=== PATIENT | female | born 1940 | race Caucasian/White ===

== ENCOUNTER 2017-03-28 12:13 | Observation (INO) ==
[2017-03-28] MEDS ORDERED: MAGNESIUM SULF RIDER 4 GM in PREMIX 1 EACH IV PRN (12:46)
[2017-03-28] MEDS ORDERED: ACETAMINOPHEN 325 MG TABLET PO PRN (12:46)
[2017-03-28] MEDS ORDERED: ZALEPLON 5 MG CAPSULE PO PRN (12:46)
[2017-03-28] MEDS ORDERED: DOCUSATE SODIUM 100 MG CAPSULE PO PRN (12:46)
[2017-03-28] MEDS ORDERED: MAGNESIUM SULF RIDER 2 GM in PREMIX 1 EACH IV PRN (12:46)
[2017-03-28] MEDS ORDERED: ONDANSETRON 4 MG/2 ML VIAL IV PRN (12:46)
[2017-03-28 14:10] LABS: Basophils % 0.4 % (0.0-0.8); Eosinophils # 0.3 10*3/uL (0.0-0.87); Eosinophils % 5.9 % (0.00-10.9); Hematocrit 37.7 VOL% (35.7-47.0); Immature Granulocytes % 0.2 %; Immature Granulocytes Absolute 0.01 #; Lymphocytes # 1.9 10*3/uL (1.4-4.0); Mean Corpuscular HGB Conc 34.5 GM/DL (32-36); Mean Corpuscular Hemoglobin 34 PG (27-34); Mean Corpuscular Volume 99.7 FL (87-102); Mean Platelet Volume 9.7 FL (9.6-12.0); Monocytes # 0.6 10*3/uL (0.11-0.8); Monocytes % 11.2 % (1.7-12.7); Neutrophils # 2.7 10*3/uL (1.4-7.4); Neutrophils % 48.3 % (38.7-73.9); Platelet Count 154 T/CUMM (130-400); Red Blood Count 3.78 MC/CUMM (3.8-5.5); Red Cell Distribution Width 13.4 % (9.3-17.3); White Blood Count 5.6 T/CUMM (4-12)
[2017-03-28 14:16] LABS: INR 1.1; PT Patient Result 11.7 SECS
[2017-03-28 14:51] LABS: Albumin 3.3 G/DL (3.4-5.0); Bilirubin,Total 0.6 MG/DL (0.2-1.0); Calcium 8.7 MG/DL (8.5-10.1); Osmolality,Calculated 284.1 MOS/KG (273-304); Potassium 4.1 MMOL/L (3.5-5.1); Thyroid Stimulating Hormone 1.37 uIU/ml (0.358-3.74); Total Protein 6.1 G/DL (6.4-8.3)
[2017-03-28] MEDS ORDERED: diphenhydrAMINE CAP 25 MG CAPSULE PO PRN (15:02)
[2017-03-28] MEDS ORDERED: guaiFENesin/DM ER 600-30 MG TABLET PO PRN (15:02)
[2017-03-28] MEDS ORDERED: BISACODYL 5 MG TABLET PO PRN (15:02)
[2017-03-28] MEDS ORDERED: ENOXAPARIN 40 MG/0.4 ML SYRINGE SUBCUT SCH (15:30)
[2017-03-28 16:24] LABS: INR 1.1; PT Patient Result 11.6 SECS; Partial Thromboplastin Time 26.1 SECS (0-40)
[2017-03-28 16:30] LABS: Calcium 9.2 MG/DL (8.5-10.1); Magnesium 2.1 MG/DL (1.8-2.4); Osmolality,Calculated 282.3 MOS/KG (273-304); Potassium 3.6 MMOL/L (3.5-5.1)
[2017-03-28] MEDS: ALBUTEROL/IPRATROPIUM 3 ML NEB RESP TX SCH ×2 (18:47→23:49)
[2017-03-28] MEDS: HYOSCYAMINE 0.125 MG TABLET PO SCH (20:43)
[2017-03-28] MEDS ORDERED: LORATADINE 10 MG TABLET PO SCH (21:00)
[2017-03-28] MEDS ORDERED: ROSUVASTATIN 20 MG TABLET PO SCH (21:00)
[2017-03-29 05:29] LABS: Basophils % 0.2 % (0.0-0.8); Eosinophils # 0.4 10*3/uL (0.0-0.87); Eosinophils % 7.7 % (0.00-10.9); Hematocrit 36.5 VOL% (35.7-47.0); Hemoglobin 12.5 GM/DL (12.0-16.0); Immature Granulocytes % 0.2 %; Immature Granulocytes Absolute 0.01 #; Lymphocytes # 2.1 10*3/uL (1.4-4.0); Lymphocytes % 44.3 % (21.3-54.2); Mean Corpuscular HGB Conc 34.2 GM/DL (32-36); Mean Corpuscular Hemoglobin 34 PG (27-34); Mean Corpuscular Volume 99.5 FL (87-102); Mean Platelet Volume 10.4 FL (9.6-12.0); Monocytes # 0.5 10*3/uL (0.11-0.8); Monocytes % 11.2 % (1.7-12.7); Neutrophils # 1.8 10*3/uL (1.4-7.4); Neutrophils % 36.4 % (38.7-73.9); Platelet Count 158 T/CUMM (130-400); Red Blood Count 3.67 MC/CUMM (3.8-5.5); Red Cell Distribution Width 13.3 % (9.3-17.3); White Blood Count 4.8 T/CUMM (4-12)
[2017-03-29] MEDS ORDERED: VANCOMYCIN 500 MG VIAL IRRIG ONE ×2 (06:00→07:30)
[2017-03-29] MEDS ORDERED: diphenhydrAMINE CAP 25 MG CAPSULE PO ONE (06:00)
[2017-03-29] MEDS ORDERED: DIAZEPAM 5 MG TABLET PO ONE ×2 (06:00→07:30)
[2017-03-29] MEDS ORDERED: VANCOMYCIN INJ 500 MG in SODIUM CHLORIDE 0.9% 100 ML IV ONE ×2 (06:00→07:30)
[2017-03-29 06:14] LABS: Calcium 8.4 MG/DL (8.5-10.1); Magnesium 2.1 MG/DL (1.8-2.4); Osmolality,Calculated 287.8 MOS/KG (273-304); Potassium 3.7 MMOL/L (3.5-5.1)
[2017-03-29 06:15] LABS: Band Neutrophils 1 % (0-10); Eosinophils 8 % (0-10); Lymphocytes 42 % (20-55); Segmented Neutrophils 35 % (50-85); Total Cells Counted 100
[2017-03-29 06:16] LABS: Platelet Estimate Adequate
[2017-03-29 06:17] LABS: Atypical Lymphocytes Few
[2017-03-29 06:22] LABS: Risk Ratio 2.35; VLDL CHOLESTEROL 15.4 MG/DL
[2017-03-29] MEDS: ALBUTEROL/IPRATROPIUM 3 ML NEB RESP TX SCH ×2 (07:00→12:03)
[2017-03-29] MEDS ORDERED: diphenhydrAMINE CAP 25 MG CAPSULE PO PRN (07:30)
[2017-03-29] MEDS ORDERED: VANCOMYCIN INJ 1,000 MG in SODIUM CHLORIDE 0.9% 250 ML IV ONE (07:30)
[2017-03-29] MEDS ORDERED: LIDOCAINE 1% 20 ML VIAL ONE (07:58)
[2017-03-29] MEDS ORDERED: MIDAZOLAM 2 MG/2 ML VIAL ONE ×2 (07:58→08:22)
[2017-03-29] MEDS ORDERED: TISSUE ADHESIVE 1 EACH APPLICATOR TOP ONE (07:58)
[2017-03-29] MEDS ORDERED: fentaNYL 100 MCG/2 ML VIAL ONE ×2 (07:58→08:22)
[2017-03-29] MEDS ORDERED: VANCOMYCIN 500 MG VIAL ONE (07:58)
[2017-03-29] MEDS ORDERED: HEPARIN/NACL 0.9% 2 UNITS/ML 500 ML IV ONE (08:09)
[2017-03-29] MEDS ORDERED: ISOSORBIDE MONONITRATE 60 MG TABLET PO SCH (09:00)
[2017-03-29] MEDS ORDERED: DONEPEZIL 10 MG TABLET PO SCH (09:00)
[2017-03-29] MEDS ORDERED: hydroCHLOROthiazide 25 MG TABLET PO SCH (09:00)
[2017-03-29] MEDS ORDERED: ASPIRIN EC 325 MG TABLET PO SCH (09:00)
[2017-03-29] MEDS ORDERED: SPIRONOLACTONE 25 MG TABLET PO SCH (09:00)
[2017-03-29] MEDS ORDERED: LOSARTAN 50 MG TABLET PO SCH (09:00)
[2017-03-29] MEDS ORDERED: PANTOPRAZOLE 40 MG TABLET PO SCH (09:00)
[2017-03-29] MEDS: HYOSCYAMINE 0.125 MG TABLET PO SCH (09:36)
[2017-03-29 15:11] VITALS: BP 162/71
== END 2017-03-29 14:30 | disposition home or self-care (01) ==
LOC: N.TELES
PROVIDERS: ADMIT Internal Medicine Cardiovascular Disease; ATTEND Internal Medicine Cardiovascular Disease

== ENCOUNTER 2018-10-03 18:23 | Inpatient (IN) ==
[2018-10-03] MEDS ORDERED: FUROSEMIDE 100 MG/10 ML VIAL IV STA (18:52)
[2018-10-03] MEDS ORDERED: SODIUM CHLORIDE 0.9% 1,000 ML IV STA (18:52)
[2018-10-03] MEDS ORDERED: INSULIN REGULAR 100 UNIT/ML IV STA (18:52)
[2018-10-03] MEDS ORDERED: ONDANSETRON 4 MG/2 ML VIAL IV STA (18:52)
[2018-10-03] MEDS ORDERED: ALBUTEROL NEB SOLN 5 MG/ML 20 ML/BOTTLE RESP TX SCH (19:00)
[2018-10-03] MEDS ORDERED: FUROSEMIDE 40 MG/4 ML VIAL ONE (19:16)
[2018-10-03 19:28] LABS: ABG Base Excess 1.6 MMOL/L (-2.5-2.5); ABG HCO3 25.8 MMOL/L (20-26); ABG Oxygen Saturation 99.5 % (95-100); ABG TCO2 16.8 MMOL/L (23-27); Allen Test Positive
[2018-10-03 19:30] LABS: ABG PH 7.623 (7.35-7.45)
[2018-10-03 19:31] LABS: ABG PCO2 19.5 MM HG (35-48)
[2018-10-03 19:43] LABS: Basophils % 0.1 % (0.0-0.8); Eosinophils # 0.1 10*3/uL (0.0-0.87); Eosinophils % 1.7 % (0.00-10.9); Hematocrit 43.1 VOL% (35.7-47.0); Hemoglobin 15.4 GM/DL (12.0-16.0); Immature Granulocytes % 0.3 %; Immature Granulocytes Absolute 0.02 #; Lymphocytes % 29.1 % (21.3-54.2); Mean Corpuscular HGB Conc 35.7 GM/DL (32-36); Mean Corpuscular Volume 96.9 FL (87-102); Mean Platelet Volume 11.2 FL (9.6-12.0); Monocytes % 11.5 % (1.7-12.7); Neutrophils % 57.3 % (38.7-73.9); Platelet Count 194 T/CUMM (130-400); Red Blood Count 4.45 MC/CUMM (3.8-5.5); Red Cell Distribution Width 12.2 % (9.3-17.3)
[2018-10-03 19:51] LABS: INR 1.1; PT Patient Result 11.4 SECS
[2018-10-03 20:01] LABS: Apearance,Urine Slightly Hazy (Clear); Bacteria,Urine Occasional /HPF (Few); Bilirubin,Urine Negative (Negative); Blood, Urine Negative (Negative); Glucose,Urine (UA) >=500 mg/dL (Negative); Ketones,Urine 20 mg/dL (Negative); Nitrite,Urine Negative (Negative); Protein,Urine Negative; RBC,Urine 1 /HPF (0-4); Squamous Epithelial Cell,Urine Occasional /HPF (0-10); Urine Color Yellow (Yellow); Urine Specific Gravity 1.029 (1.001-1.035); Urine Urobilinogen < 2.0 EU/DL (0.2-1.0); WBC,Urine 1 /HPF (0-6)
[2018-10-03 20:04] LABS: Alanine Aminotransferase 41 U/L (13-56); Albumin 3.2 G/DL (3.4-5.0); Alkaline Phosphatase 115 U/L (45-117); Aspartate Amino Transferase 28 U/L (0-37); Blood Urea Nitrogen 25 MG/DL (7-18); Calcium 10.8 MG/DL (8.5-10.1); Osmolality,Calculated 289.7 MOS/KG (273-304); Total Protein 7.1 G/DL (6.4-8.3); Troponin I 0.027 NG/ML (0.00-0.045)
[2018-10-03 20:08] LABS: Glucose 534 MG/DL (74-106)
[2018-10-03] MEDS ORDERED: ALBUTEROL 2.5 MG/3 ML NEB RESP TX PRN (22:08)
[2018-10-03] MEDS ORDERED: ONDANSETRON 4 MG/2 ML VIAL IV PRN (22:08)
[2018-10-03] MEDS ORDERED: SODIUM CHLORIDE 0.9% IV PRN (22:08)
[2018-10-03] MEDS ORDERED: SODIUM PHOSPHATE IV PRN (22:08)
[2018-10-03] MEDS ORDERED: MAGNESIUM SULF RIDER 2 GM in PREMIX 1 EACH IV PRN (22:08)
[2018-10-03] MEDS ORDERED: ZALEPLON 5 MG CAPSULE PO PRN (22:08)
[2018-10-03] MEDS ORDERED: SODIUM BICARB INJ 100 MEQ in STERILE WATER INJ 400 ML IV PRN (22:08)
[2018-10-03] MEDS ORDERED: DEXTROSE 50% 25 GM/50 ML SYRINGE IV PRN ×2 (22:08)
[2018-10-03] MEDS ORDERED: MAGNESIUM SULF RIDER 4 GM in PREMIX 1 EACH IV PRN (22:08)
[2018-10-03] MEDS ORDERED: INSULIN REGULAR DRIP 100 ML IV SCH (23:00)
[2018-10-03] MEDS ORDERED: SODIUM CHLORIDE 0.9% 1,000 ML IV SCH (23:00)
[2018-10-04] MEDS: POTASSIUM CHLORIDE RIDER 10 MEQ in PREMIX 1 EACH IV PRN ×3 (00:30→03:46)
[2018-10-04] MEDS: ENOXAPARIN 30 MG/0.3 ML SYRINGE SUBCUT SCH ×2 (00:46→21:49)
[2018-10-04] MEDS ORDERED: ZOLPIDEM 5 MG TABLET PO PRN (01:14)
[2018-10-04] MEDS ORDERED: ALBUTEROL 2.5 MG/3 ML NEB RESP TX PRN (01:14)
[2018-10-04 02:24] LABS: Calcium 9.3 MG/DL (8.5-10.1); Osmolality,Calculated 293.8 MOS/KG (273-304)
[2018-10-04] MEDS: LORazepam 1 MG TABLET PO SCH ×3 (02:29→21:43)
[2018-10-04] MEDS: DONEPEZIL 10 MG TABLET PO SCH ×2 (02:29→21:44)
[2018-10-04] MEDS: FAMOTIDINE 20 MG TABLET PO SCH ×2 (02:29→21:44)
[2018-10-04] MEDS: MIRTAZAPINE 15 MG TABLET PO SCH ×2 (02:29→21:48)
[2018-10-04 03:16] LABS: Basophils % 0.3 % (0.0-0.8); Eosinophils # 0.1 10*3/uL (0.0-0.87); Eosinophils % 1.9 % (0.00-10.9); Hematocrit 40.1 VOL% (35.7-47.0); Hemoglobin 13.8 GM/DL (12.0-16.0); Immature Granulocytes % 0.3 %; Immature Granulocytes Absolute 0.02 #; Lymphocytes # 2.1 10*3/uL (1.4-4.0); Mean Corpuscular HGB Conc 34.4 GM/DL (32-36); Mean Corpuscular Volume 98.8 FL (87-102); Mean Platelet Volume 10.7 FL (9.6-12.0); Monocytes % 14.8 % (1.7-12.7); Neutrophils % 51.7 % (38.7-73.9); Platelet Count 160 T/CUMM (130-400); Red Blood Count 4.06 MC/CUMM (3.8-5.5); Red Cell Distribution Width 12.1 % (9.3-17.3); White Blood Count 6.8 T/CUMM (4-12)
[2018-10-04] MEDS: SODIUM CHLORIDE 0.45% 1,000 ML IV SCH ×2 (04:55→13:25)
[2018-10-04 06:35] LABS: Apearance,Urine CLEAR (Clear); Bacteria,Urine Occasional /HPF (Few); Bilirubin,Urine Negative (Negative); Blood, Urine Negative (Negative); Glucose,Urine (UA) >=500 mg/dL (Negative); Hyaline Casts,Urine 9 /LPF (0-3); Ketones,Urine 5 mg/dL (Negative); Mucus,Urine Occasional /LPF (Occasional); Nitrite,Urine Negative (Negative); Protein,Urine Negative; RBC,Urine <1 /HPF (0-4); Urine Color Yellow (Yellow); Urine Specific Gravity 1.018 (1.001-1.035); Urine Urobilinogen < 2.0 EU/DL (0.2-1.0); WBC,Urine <1 /HPF (0-6)
[2018-10-04 07:33] LABS: Calcium 8.9 MG/DL (8.5-10.1); Osmolality,Calculated 288.5 MOS/KG (273-304)
[2018-10-04] MEDS ORDERED: [UNRECOGNIZED DRUG - MIXTURE] PO SCH (09:00)
[2018-10-04] MEDS ORDERED: PANTOPRAZOLE 40 MG VIAL IV SCH (09:00)
[2018-10-04] MEDS ORDERED: PANTOPRAZOLE 40 MG TABLET PO SCH (09:00)
[2018-10-04] MEDS ORDERED: MELATONIN 3 MG TABLET PO SCH (09:00)
[2018-10-04] MEDS ORDERED: [UNRECOGNIZED DRUG - REMARK] PO SCH (09:00)
[2018-10-04] MEDS ORDERED: VITAMIN E 200 UNIT CAPSULE PO SCH (09:00)
[2018-10-04 10:22] LABS: Calcium 8.9 MG/DL (8.5-10.1); Osmolality,Calculated 281.3 MOS/KG (273-304)
[2018-10-04] MEDS ORDERED: GLUCAGON 1 MG VIAL IM PRN (12:05)
[2018-10-04] MEDS ORDERED: DEXTROSE 50% 25 GM/50 ML SYRINGE IV PRN (12:05)
[2018-10-04] MEDS: DICYCLOMINE 10 MG CAPSULE PO SCH ×3 (13:22→21:43)
[2018-10-04] MEDS: VENLAFAXINE 75 MG TABLET PO SCH (13:22)
[2018-10-04] MEDS: POTASSIUM CHLORIDE 20 MEQ TABLET PO SCH (13:22)
[2018-10-04] MEDS: amLODIPine 5 MG TABLET PO SCH (13:23)
[2018-10-04] MEDS: ROSUVASTATIN 10 MG TABLET PO SCH (13:23)
[2018-10-04] MEDS: METOPROLOL TARTRATE 50 MG TABLET PO SCH ×2 (13:23→21:44)
[2018-10-04] MEDS: LOPERAMIDE 2 MG CAPSULE PO SCH (13:24)
[2018-10-04] MEDS: ISOSORBIDE MONONITRATE 60 MG TABLET PO SCH (13:24)
[2018-10-04] MEDS: ASPIRIN EC 81 MG TABLET PO SCH (13:24)
[2018-10-04] MEDS: hydroCHLOROthiazide 25 MG TABLET PO SCH (13:24)
[2018-10-04] MEDS: INSULIN LISPRO 100 UNIT/ML SUBCUT SCH ×2 (17:05→21:41)
[2018-10-04] MEDS: MELATONIN 3 MG TABLET PO SCH (21:43)
[2018-10-04] MEDS: CALCIUM (CARBONATE)/VITAMIN D 600 MG-400 UNIT TABLET PO SCH (21:44)
[2018-10-05] MEDS: SODIUM CHLORIDE 0.45% 1,000 ML IV SCH ×4 (01:56→18:01)
[2018-10-05 06:06] LABS: Albumin 2.4 G/DL (3.4-5.0); Calcium 8.3 MG/DL (8.5-10.1)
[2018-10-05] MEDS: ASPIRIN EC 81 MG TABLET PO SCH (09:09)
[2018-10-05] MEDS: amLODIPine 5 MG TABLET PO SCH (09:09)
[2018-10-05] MEDS: POTASSIUM CHLORIDE 20 MEQ TABLET PO SCH (09:09)
[2018-10-05] MEDS: ISOSORBIDE MONONITRATE 60 MG TABLET PO SCH (09:09)
[2018-10-05] MEDS: METOPROLOL TARTRATE 50 MG TABLET PO SCH ×2 (09:10→21:41)
[2018-10-05] MEDS: LORazepam 1 MG TABLET PO SCH ×2 (09:10→21:32)
[2018-10-05] MEDS: DICYCLOMINE 10 MG CAPSULE PO SCH ×3 (09:10→21:32)
[2018-10-05] MEDS: ROSUVASTATIN 10 MG TABLET PO SCH (09:10)
[2018-10-05] MEDS: VENLAFAXINE 75 MG TABLET PO SCH (09:10)
[2018-10-05] MEDS: LOPERAMIDE 2 MG CAPSULE PO SCH (09:10)
[2018-10-05] MEDS: POTASSIUM CHLORIDE RIDER 10 MEQ in PREMIX 1 EACH IV PRN ×6 (09:11→22:51)
[2018-10-05] MEDS: INSULIN LISPRO 100 UNIT/ML SUBCUT SCH ×4 (09:11→21:31)
[2018-10-05] MEDS: hydroCHLOROthiazide 25 MG TABLET PO SCH (09:21)
[2018-10-05] MEDS ORDERED: metFORMIN 500 MG TABLET PO SCH (17:00)
[2018-10-05] MEDS: MELATONIN 3 MG TABLET PO SCH (21:31)
[2018-10-05] MEDS: FAMOTIDINE 20 MG TABLET PO SCH (21:32)
[2018-10-05] MEDS: MIRTAZAPINE 15 MG TABLET PO SCH (21:41)
[2018-10-05] MEDS: CALCIUM (CARBONATE)/VITAMIN D 600 MG-400 UNIT TABLET PO SCH (21:41)
[2018-10-05] MEDS: DONEPEZIL 10 MG TABLET PO SCH (21:41)
[2018-10-05] MEDS: ENOXAPARIN 30 MG/0.3 ML SYRINGE SUBCUT SCH (21:42)
[2018-10-06] MEDS: POTASSIUM CHLORIDE RIDER 10 MEQ in PREMIX 1 EACH IV PRN (00:45)
[2018-10-06] MEDS: SODIUM CHLORIDE 0.45% 1,000 ML IV SCH (02:21)
[2018-10-06 06:00] LABS: Calcium 8.8 MG/DL (8.5-10.1); Osmolality,Calculated 294.8 MOS/KG (273-304)
[2018-10-06] MEDS ORDERED: FUROSEMIDE 40 MG/4 ML VIAL IV ONE (09:00)
[2018-10-06] MEDS ORDERED: LISINOPRIL 5 MG TABLET PO SCH (09:00)
[2018-10-06] MEDS: INSULIN LISPRO 100 UNIT/ML SUBCUT SCH ×4 (09:05→20:51)
[2018-10-06] MEDS: LOPERAMIDE 2 MG CAPSULE PO SCH (09:07)
[2018-10-06] MEDS: hydroCHLOROthiazide 25 MG TABLET PO SCH (09:07)
[2018-10-06] MEDS: metFORMIN 500 MG TABLET PO SCH ×2 (09:08→16:55)
[2018-10-06] MEDS: ASPIRIN EC 81 MG TABLET PO SCH (09:08)
[2018-10-06] MEDS: amLODIPine 5 MG TABLET PO SCH (09:08)
[2018-10-06] MEDS: LORazepam 1 MG TABLET PO SCH ×2 (09:08→20:46)
[2018-10-06] MEDS: DICYCLOMINE 10 MG CAPSULE PO SCH ×3 (09:08→20:46)
[2018-10-06] MEDS: METOPROLOL TARTRATE 50 MG TABLET PO SCH ×2 (09:08→20:47)
[2018-10-06] MEDS: ISOSORBIDE MONONITRATE 60 MG TABLET PO SCH (09:09)
[2018-10-06] MEDS: VENLAFAXINE 75 MG TABLET PO SCH (09:09)
[2018-10-06] MEDS: ROSUVASTATIN 10 MG TABLET PO SCH (09:09)
[2018-10-06] MEDS: POTASSIUM CHLORIDE 20 MEQ TABLET PO SCH (09:09)
[2018-10-06] MEDS: FAMOTIDINE 20 MG TABLET PO SCH (20:46)
[2018-10-06] MEDS: MELATONIN 3 MG TABLET PO SCH (20:46)
[2018-10-06] MEDS: MIRTAZAPINE 15 MG TABLET PO SCH (20:46)
[2018-10-06] MEDS: DONEPEZIL 10 MG TABLET PO SCH (20:46)
[2018-10-06] MEDS: CALCIUM (CARBONATE)/VITAMIN D 600 MG-400 UNIT TABLET PO SCH (20:46)
[2018-10-06] MEDS: ENOXAPARIN 40 MG/0.4 ML SYRINGE SUBCUT SCH (20:55)
[2018-10-07] MEDS ORDERED: FUROSEMIDE 40 MG/4 ML VIAL IV ONE (08:13)
[2018-10-07] MEDS: INSULIN LISPRO 100 UNIT/ML SUBCUT SCH ×4 (08:29→21:03)
[2018-10-07] MEDS: ASPIRIN EC 81 MG TABLET PO SCH (08:30)
[2018-10-07] MEDS: ISOSORBIDE MONONITRATE 60 MG TABLET PO SCH (08:30)
[2018-10-07] MEDS: LORazepam 1 MG TABLET PO SCH ×2 (08:30→21:02)
[2018-10-07] MEDS: amLODIPine 5 MG TABLET PO SCH (08:31)
[2018-10-07] MEDS: METOPROLOL TARTRATE 50 MG TABLET PO SCH ×2 (08:31→21:03)
[2018-10-07] MEDS: ROSUVASTATIN 10 MG TABLET PO SCH (08:31)
[2018-10-07] MEDS: hydroCHLOROthiazide 25 MG TABLET PO SCH (08:31)
[2018-10-07] MEDS: VENLAFAXINE 75 MG TABLET PO SCH (08:31)
[2018-10-07] MEDS: metFORMIN 500 MG TABLET PO SCH ×3 (08:31→16:13)
[2018-10-07] MEDS: LOPERAMIDE 2 MG CAPSULE PO SCH (08:32)
[2018-10-07] MEDS: DICYCLOMINE 10 MG CAPSULE PO SCH ×3 (08:32→21:02)
[2018-10-07] MEDS: POTASSIUM CHLORIDE 20 MEQ TABLET PO SCH (08:32)
[2018-10-07] MEDS: LISINOPRIL 5 MG TABLET PO SCH ×2 (08:32→21:02)
[2018-10-07 18:29] LABS: Hepatitis B Core IgM Quant < 0.05 Index; Hepatitis B Surface Ag Quant < 0.10 Index; Hepatitis B Surface Ag Result Negative (Negative); Hepatitis C Virus Ab Quant 0.04 Index; Hepatitis C Virus Ab Result Negative (Negative)
[2018-10-07 18:29] LABS: HIV Antigen/Antibody Result Nonreactive (Nonreactive)
[2018-10-07] MEDS: DONEPEZIL 10 MG TABLET PO SCH (21:02)
[2018-10-07] MEDS: MELATONIN 3 MG TABLET PO SCH (21:02)
[2018-10-07] MEDS: ENOXAPARIN 40 MG/0.4 ML SYRINGE SUBCUT SCH (21:03)
[2018-10-07] MEDS: MIRTAZAPINE 15 MG TABLET PO SCH (21:03)
[2018-10-07] MEDS: CALCIUM (CARBONATE)/VITAMIN D 600 MG-400 UNIT TABLET PO SCH (21:03)
[2018-10-07] MEDS: FAMOTIDINE 20 MG TABLET PO SCH (21:03)
[2018-10-08] MEDS ORDERED: FUROSEMIDE 40 MG/4 ML VIAL IV ONE (08:00)
[2018-10-08] MEDS: INSULIN LISPRO 100 UNIT/ML SUBCUT SCH ×4 (08:33→22:07)
[2018-10-08] MEDS: POTASSIUM CHLORIDE 20 MEQ TABLET PO SCH (08:34)
[2018-10-08] MEDS: amLODIPine 5 MG TABLET PO SCH (08:34)
[2018-10-08] MEDS: hydroCHLOROthiazide 25 MG TABLET PO SCH (08:34)
[2018-10-08] MEDS: LORazepam 1 MG TABLET PO SCH ×2 (08:34→22:06)
[2018-10-08] MEDS: VENLAFAXINE 75 MG TABLET PO SCH (08:34)
[2018-10-08] MEDS: LISINOPRIL 10 MG TABLET PO SCH ×2 (08:34→22:06)
[2018-10-08] MEDS: DICYCLOMINE 10 MG CAPSULE PO SCH ×3 (08:34→22:06)
[2018-10-08] MEDS: ROSUVASTATIN 10 MG TABLET PO SCH (08:34)
[2018-10-08] MEDS: METOPROLOL TARTRATE 50 MG TABLET PO SCH ×2 (08:35→22:06)
[2018-10-08] MEDS: GLIMEPIRIDE 2 MG TABLET PO SCH (08:35)
[2018-10-08] MEDS: LOPERAMIDE 2 MG CAPSULE PO SCH (08:35)
[2018-10-08] MEDS: metFORMIN 500 MG TABLET PO SCH ×3 (08:35→16:19)
[2018-10-08] MEDS: ASPIRIN EC 81 MG TABLET PO SCH (08:35)
[2018-10-08] MEDS: ISOSORBIDE MONONITRATE 60 MG TABLET PO SCH (12:27)
[2018-10-08] MEDS: MELATONIN 3 MG TABLET PO SCH (22:05)
[2018-10-08] MEDS: DONEPEZIL 10 MG TABLET PO SCH (22:06)
[2018-10-08] MEDS: MIRTAZAPINE 15 MG TABLET PO SCH (22:06)
[2018-10-08] MEDS: ENOXAPARIN 40 MG/0.4 ML SYRINGE SUBCUT SCH (22:06)
[2018-10-08] MEDS: FAMOTIDINE 20 MG TABLET PO SCH (22:06)
[2018-10-08] MEDS: CALCIUM (CARBONATE)/VITAMIN D 600 MG-400 UNIT TABLET PO SCH (22:06)
[2018-10-09 05:17] LABS: Calcium 8.9 MG/DL (8.5-10.1); Osmolality,Calculated 291.1 MOS/KG (273-304)
[2018-10-09] MEDS: LORazepam 1 MG TABLET PO SCH ×2 (09:29→20:47)
[2018-10-09] MEDS: hydroCHLOROthiazide 25 MG TABLET PO SCH (09:29)
[2018-10-09] MEDS: ISOSORBIDE MONONITRATE 60 MG TABLET PO SCH (09:29)
[2018-10-09] MEDS: GLIMEPIRIDE 2 MG TABLET PO SCH (09:30)
[2018-10-09] MEDS: INSULIN LISPRO 100 UNIT/ML SUBCUT SCH ×4 (09:30→20:54)
[2018-10-09] MEDS: ROSUVASTATIN 10 MG TABLET PO SCH (09:30)
[2018-10-09] MEDS: ASPIRIN EC 81 MG TABLET PO SCH (09:30)
[2018-10-09] MEDS: VENLAFAXINE 75 MG TABLET PO SCH (09:30)
[2018-10-09] MEDS: amLODIPine 5 MG TABLET PO SCH (09:30)
[2018-10-09] MEDS: metFORMIN 500 MG TABLET PO SCH ×3 (09:30→16:35)
[2018-10-09] MEDS: POTASSIUM CHLORIDE 20 MEQ TABLET PO SCH ×2 (09:30→20:50)
[2018-10-09] MEDS: METOPROLOL TARTRATE 50 MG TABLET PO SCH ×2 (09:30→20:52)
[2018-10-09] MEDS: LISINOPRIL 10 MG TABLET PO SCH ×2 (09:30→20:48)
[2018-10-09] MEDS: DICYCLOMINE 10 MG CAPSULE PO SCH ×3 (09:30→20:47)
[2018-10-09] MEDS: LOPERAMIDE 2 MG CAPSULE PO SCH (09:31)
[2018-10-09] MEDS: DONEPEZIL 10 MG TABLET PO SCH (20:48)
[2018-10-09] MEDS: MELATONIN 3 MG TABLET PO SCH (20:48)
[2018-10-09] MEDS: FAMOTIDINE 20 MG TABLET PO SCH (20:48)
[2018-10-09] MEDS: MIRTAZAPINE 15 MG TABLET PO SCH (20:49)
[2018-10-09] MEDS: CALCIUM (CARBONATE)/VITAMIN D 600 MG-400 UNIT TABLET PO SCH (20:50)
[2018-10-09] MEDS: ENOXAPARIN 40 MG/0.4 ML SYRINGE SUBCUT SCH (20:55)
[2018-10-10 05:03] LABS: Calcium 9.4 MG/DL (8.5-10.1); Osmolality,Calculated 285.1 MOS/KG (273-304)
[2018-10-10] MEDS: INSULIN LISPRO 100 UNIT/ML SUBCUT SCH ×4 (09:00→20:47)
[2018-10-10] MEDS: metFORMIN 500 MG TABLET PO SCH ×3 (09:01→16:06)
[2018-10-10] MEDS: hydroCHLOROthiazide 25 MG TABLET PO SCH (09:01)
[2018-10-10] MEDS: GLIMEPIRIDE 2 MG TABLET PO SCH (09:01)
[2018-10-10] MEDS: LOPERAMIDE 2 MG CAPSULE PO SCH (09:01)
[2018-10-10] MEDS: ROSUVASTATIN 10 MG TABLET PO SCH (09:02)
[2018-10-10] MEDS: POTASSIUM CHLORIDE 20 MEQ TABLET PO SCH ×2 (09:02→20:42)
[2018-10-10] MEDS: METOPROLOL TARTRATE 50 MG TABLET PO SCH ×2 (09:03→20:44)
[2018-10-10] MEDS: ASPIRIN EC 81 MG TABLET PO SCH (09:03)
[2018-10-10] MEDS: ISOSORBIDE MONONITRATE 60 MG TABLET PO SCH (09:03)
[2018-10-10] MEDS: VENLAFAXINE 75 MG TABLET PO SCH (09:03)
[2018-10-10] MEDS: DICYCLOMINE 10 MG CAPSULE PO SCH ×3 (09:03→20:41)
[2018-10-10] MEDS: LISINOPRIL 10 MG TABLET PO SCH ×2 (09:03→20:45)
[2018-10-10] MEDS: amLODIPine 5 MG TABLET PO SCH (09:03)
[2018-10-10] MEDS: LORazepam 1 MG TABLET PO SCH ×2 (09:05→20:40)
[2018-10-10] MEDS: MELATONIN 3 MG TABLET PO SCH (20:39)
[2018-10-10] MEDS: DONEPEZIL 10 MG TABLET PO SCH (20:39)
[2018-10-10] MEDS: FAMOTIDINE 20 MG TABLET PO SCH (20:40)
[2018-10-10] MEDS: CALCIUM (CARBONATE)/VITAMIN D 600 MG-400 UNIT TABLET PO SCH (20:41)
[2018-10-10] MEDS: MIRTAZAPINE 15 MG TABLET PO SCH (20:41)
[2018-10-10] MEDS: ENOXAPARIN 40 MG/0.4 ML SYRINGE SUBCUT SCH (20:47)
[2018-10-11 07:46] VITALS: BP 143/83
[2018-10-11] MEDS: INSULIN LISPRO 100 UNIT/ML SUBCUT SCH ×2 (08:35→12:44)
[2018-10-11] MEDS: DICYCLOMINE 10 MG CAPSULE PO SCH (08:36)
[2018-10-11] MEDS: metFORMIN 500 MG TABLET PO SCH (08:36)
[2018-10-11] MEDS: VENLAFAXINE 75 MG TABLET PO SCH (08:36)
[2018-10-11] MEDS: LORazepam 1 MG TABLET PO SCH (08:36)
[2018-10-11] MEDS: hydroCHLOROthiazide 25 MG TABLET PO SCH (08:36)
[2018-10-11] MEDS: LISINOPRIL 10 MG TABLET PO SCH (08:36)
[2018-10-11] MEDS: ROSUVASTATIN 10 MG TABLET PO SCH (08:36)
[2018-10-11] MEDS: METOPROLOL TARTRATE 50 MG TABLET PO SCH (08:37)
[2018-10-11] MEDS: ASPIRIN EC 81 MG TABLET PO SCH (08:37)
[2018-10-11] MEDS: ISOSORBIDE MONONITRATE 60 MG TABLET PO SCH (08:37)
[2018-10-11] MEDS: GLIMEPIRIDE 2 MG TABLET PO SCH (08:37)
[2018-10-11] MEDS: POTASSIUM CHLORIDE 20 MEQ TABLET PO SCH (08:37)
[2018-10-11] MEDS: amLODIPine 5 MG TABLET PO SCH (08:37)
[2018-10-11] MEDS: LOPERAMIDE 2 MG CAPSULE PO SCH (11:45)
== END 2018-10-11 11:30 | disposition home or self-care (01) | DRG 638 ==
LOC: EDUNIT# → EDBD → N.ED 18:23 → SUATTDRO 21:41 → N.EDINP 21:41 → N.CC 22:48 → N.2E 10-04 19:58
PROVIDERS: ADMIT Internal Medicine Geriatric Medicine